=== PATIENT | female | born 1960 | race Caucasian/White ===

== ENCOUNTER 2025-07-01 14:31 | Emergency (ER) | payer OTHER ==
[2025-07-01 15:09] LABS: BASOPHILS ABSOLUTE AUTO 0.03 10^3/uL (0.00-0.10); BASOPHILS PERCENT AUTO 0.5 % (0.0-1.0); EOSINOPHILS ABSOLUTE AUTO 0.10 10^3/uL (0.10-0.30); EOSINOPHILS PERCENT AUTO 1.6 % (1.0-3.0); IMMATURE GRAN ABSOLUTE AUTO 0.00 10^3/uL (0.00-0.04); IMMATURE GRAN PERCENT AUTO 0.0 % (0.0-0.4); LYMPHOCYTES ABSOLUTE AUTO 1.38 10^3/uL (1.00-4.00); LYMPHOCYTES PERCENT AUTO 22.4 % (20.0-40.0); MEAN PLATELET VOLUME 9.8 fL (7.4-10.4); MONOCYTES ABSOLUTE AUTO 0.46 10^3/uL (0.10-0.80); MONOCYTES PERCENT AUTO 7.5 % (2.0-8.0); NEUTROPHILS ABSOLUTE AUTO 4.20 10^3/uL (2.50-7.00); NEUTROPHILS PERCENT AUTO 68.0 % (50.0-70.0); PLATELET COUNT,PLT 162 10^3/uL (150-400); RED BLOOD CELL COUNT 4.54 10^6/uL (3.80-5.50); RED CELL DISTRIBUTION WIDTH 12.2 % (11.5-14.5); WHITE BLOOD CELL COUNT,WBC 6.17 10^3/uL (5.00-10.00)
[2025-07-01 15:14] LABS: APPEARANCE,URINE CLEAR (CLEAR); GLUCOSE,URINE NEGATIVE (NEGATIVE); OCCULT BLOOD,URINE TRACE-INTACT (NEGATIVE)
[2025-07-01 15:21] LABS: EPITHELIAL CELLS,URINE RARE /LPF
[2025-07-01 15:22] LABS: ALANINE AMINOTRANSFERASE,ALT 26.0 U/L (14-63); ASPARTATE AMNIOTRANSFERASE,AST 20.0 U/L (15-37); BILIRUBIN TOTAL 1.6 mg/dL (0.2-1.0); BLOOD UREA NITROGEN,BUN 20.0 mg/dL (7-18); CARBON DIOXIDE,CO2 26.6 mmol/L (21.0-32.0); CHLORIDE,CL 102.0 mmol/L (98-107); CREATININE 0.9 mg/dL (0.51-1.17); EST CRCL DRUG DOSING (CG) 59.79 mL/min; ESTIMATED GFR 71.0 mL/min (>=60); GLUCOSE RANDOM 97.0 mg/dL (70-140); POTASSIUM,K 3.6 mmol/L (3.5-5.1); PROTEIN TOTAL,TP 6.8 g/dL (6.4-8.2); SODIUM,NA 139.0 mmol/L (136-145)
== END 2025-07-01 16:09 | disposition home or self-care (01) ==
LOC: KA.ED 14:31
DX: K52.9 Noninfective gastroenteritis and colitis, unspecified (principal); R74.8 Abnormal levels of other serum enzymes; Z90.49 Acquired absence of other specified parts of digestive tract; Z90.710 Acquired absence of both cervix and uterus; Z88.5 Allergy status to narcotic agent; Z88.2 Allergy status to sulfonamides; Z79.899 Other long term (current) drug therapy
CPT/HCPCS: 36415; 74018; 80053; 81001; 83690; 85025; 99284; A9270-GY